=== PATIENT | female | born 1995 | race Caucasian/White ===

== ENCOUNTER → 2021-05-12 10:00 | Outpatient (BNVA) | payer OTHER, SELFPAY | PROVIDERS: Family Provider Nurse Practitioner Family; PCP Nurse Practitioner Family; Visit Provider Nurse Practitioner Family | DX: Z20.822 Contact with and (suspected) exposure to COVID-19 (principal) | CPT/HCPCS: 87635 ==

== ENCOUNTER 2021-07-27 18:45 | Outpatient (CLI) | payer MEDICAID, SELFPAY ==
[2021-07-27] VITALS (9 sets, daily range): BP systolic 116–136; BP diastolic 62–73; PULSE 57–73; RESP 16; BMI 31.2
[2021-07-27 20:06] LABS: Add Urine Microscopic? NO; Charge for UA Resulting for Rev
[2021-07-27 20:08] LABS: Specific Gravity, Urine 1.005 (1.005-1.030); Urine Appearance Hazy (CLEAR); Urine Color Yellow (Yellow); pH Urine 7 (5-7)
[2021-07-27 20:09] LABS: Bilirubin Urine Neg (Negative); Blood Urine Neg (Negative); Glucose Urine UA Norm (Normal); Ketones Urine Negative (Negative); Leukocyte Esterase Urine Negative (Negative); Nitrate Urine Negative (Negative); Protein Urine Neg (Negative); Urobilinogen Urine Norm (Negative)
== END 2021-07-27 20:22 | disposition home or self-care (01) ==
LOC: OPOB 18:54 → OBGYN 18:55
PROVIDERS: PCP Nurse Practitioner Family; Visit Provider Family Medicine
DX: O16.9 Unspecified maternal hypertension, unspecified trimester (principal); Z3A.00 Weeks of gestation of pregnancy not specified
CPT/HCPCS: 59025; 81003; 99211

== ENCOUNTER → 2021-09-03 15:10 | Outpatient (BNVA) | payer MEDICAID, SELFPAY | PROVIDERS: PCP Nurse Practitioner Family; Visit Provider Family Medicine | DX: Z01.812 Encounter for preprocedural laboratory examination (principal); Z20.822 Contact with and (suspected) exposure to COVID-19 | CPT/HCPCS: 87635 ==

== ENCOUNTER 2021-09-04 03:40 | Inpatient (IN) | payer MEDICAID, SELFPAY ==
[2021-09-04] VITALS (112 sets, daily range): BP systolic 90–141; BP diastolic 47–90; PULSE 58–130; RESP 16–18; TEMP 36.2–37.1; O2SAT 94–100; BMI 32.1
[2021-09-04] MEDS: lactated ringers 1,000 ML 999 ML IV ×3 (03:49→08:50)
[2021-09-04 04:05] LABS: Basophils # 0.1 10^3/uL (0.0-0.1); Basophils % 0.5 %; Hematocrit 35.2 % (37.0-47.0); Hemoglobin 11.6 g/dL (11.5-15.3); Lymphocytes # 1.4 10^3/uL (0.8-4.8); Lymphocytes % 9.1 %; Mean Corpuscular Volume 82.1 fl (81-99); Mean Platelet Volume 10.8 fL (7.4-10.4); Monocytes # 0.5 10^3/uL (0.2-0.9); Monocytes % 3.2 %; Neutrophils % 86.1 %; Nucleated Red Blood Cells % 0 %; Platelet Count 351 10^3/cmm (130-400); Red Blood Count 4.29 10^6/uL (4.1-5.3); Red Cell Distribution Width 13.1 % (12.1-15.1); White Blood Count 15.2 10^3/uL (4.0-10.0)
[2021-09-04 04:08] LABS: SARS Covid-2 Antigen Negative (Negative)
--- NOTE | 2021-09-04 05:41 | ANES.PREANE2 ---
Documented by User: Silvestre Torres Jr, BINDERY CUTTER OPERATOR 09/04/21 05:47 Pre-Anesthetic Assessment Height/Weight: Height 1.63 m Weight 84.822 kg Pulse Resp BP Pulse Ox 84 18 133/67 96 09/04/21 05:38 09/04/21 03:58 09/04/21 05:38 09/04/21 05:38 Preop Diagnosis: Labor Pain YUNI Was Beta Clay taken within 24 hours: N/A Was Clonidine taken within 24 hours: N/A Social No alcohol and No tobacco Exam alert, oriented x 3, clear to auscultation bilaterally and regular rate & rhythm Airway Submandibular: within normal limits Cervical ROM: within normal limits Mallampati: Class II (Prior trach age 8. No difficulty with intubation since) History/ROS No significant history except as noted and No significant complaints Pulmonary None reported CV/HEM None reported None reported Hepatic None reported GI None reported Metabolic None reported Musc/skel None reported Neuropsych None reported Anesthetic Plan ASA status: 2 Anesthesia: Regional (specify below) Other: YUNI Risk of > 500 ml blood loss (7ml/kg in children): No Medications/Allergies Home Medications Medication Instructions Recorded Confirmed Last Taken Type bqomzfdc-baq-Ey-FA 1 mg 1 tab PO DAILY 09/04/21 09/04/21 09/03/21 21:00 History tablet ibuprofen 800 mg tablet 800 mg PO TID #45 tab 09/05/21 Unknown Rx Allergies Allergy/AdvReac Type Severity Reaction Status Date / Time Sulfa (Sulfonamide Allergy ALGY-Anaphy Verified 09/04/21 00:13 Antibiotics) laxis Current Medications Generic Name Dose Route Start Last Admin Trade Name Ilana PRN Reason Stop Dose Admin Lactated Ringer's 1,000 mls @ 999 mls/hr 09/04/21 03:25 09/04/21 04:50 Lactated Ringers IV Infused .Q1H1M PRN Infusion See label comments Lactated Ringer's 1,000 mls @ 999 mls/hr 09/04/21 03:58 09/04/21 04:50 Lactated Ringers IV 999 mls/hr .Q1H1M PRN Administration Per L&D Rescitation Protocol [facility] Anesthesia Female Reproductive History : 1 Data Anesthesia : 09/04/21 20:46 Short CBC 09/04/21 Range/Units 03:25 WBC 15.2 H (4.0-10.0) 10^3/uL Hgb 11.6 (11.5-15.3) g/dL Hct 35.2 L (37.0-47.0) % MCV 82.1 (81-99) fl Plt Count 351 (130-400) 10^3/cmm Neut % (Auto) 86.1 % Neut # (Auto) 13.10 H (1.8-7.7) 10^3/uL COVID Results 09/04/21 03:40 SARS-CoV-2 Ag (Rapid) Negative Cardiac Studies: No Data to Display
--- NOTE | 2021-09-04 05:50 | ANES.PROC ---
Anesthesia Procedures Procedure/Date: 09/04/21 Epidural: Time Out Performed: Yes Consents Signed: Procedure Consent Consent: requested by attending/covering physician, from patient, risks and benefits reviewed and patient agrees to proceed Lumbar Level: L2-L3 Epidural position: sitting Epidural procedure: sterile prep of area, 1% lidocaine to numb the area, 18 g needle, neg for paresthesia, test dose given, 1.5% xylocaine 1:200k epi (5cc), 0.2% Ropivacaine bolus ml (5cc with Fentanyl 100mcg), placed PCEA, no systemic response, sterile dressing applied, L.U.D. no apparent complications and 0.2% Ropiavacaine @ mls/hr (13cc/hour) Additional Comments: FIORELLA at 7cm. Pt richi well
--- NOTE | 2021-09-04 07:54 | ANES.PROC ---
Documented by User: Rogelio Porras Jr, CRNA 09/04/21 08:08 Anesthesia Procedures Procedure/Date: 09/04/21 Procedure Narrative: Pt C/o numbness and tingling to hands. Epidural held for 30 min. Restarted at 10ml/hr. Pt comfortable with good respiratory effort. Pt educated on bolus button. Will continue to monitor. Documented by User: Sabrina Schuler DO 09/05/21 07:57 Anesthesia Procedures Procedure/Date: 09/05/21
[2021-09-04] MEDS: dextrose 5%-lactated ringers 1,000 ML 125 ML IV (09:50)
--- NOTE | 2021-09-04 12:10 | PM.OPHPUD ---
Labor & Delivery H&P Update Date of Procedure: September 04, 2021 Date H&P Performed: 09/01/21 Admission Diagnosis: 25-year-old 1 at 38 weeks estimated gestational age presenting in active labor Preop diagnosis: Labor Pain Planned procedure: Spontaneous vaginal delivery Other information: The patient is a relatively healthy 25-year-old female who has had a relatively unremarkable with exception of being antibody positive having titers that are 1:1. Her blood type is a positive. Her GBS status is negative. She passed her glucose screen. The remainder of her labs are within normal limits. Her titer has been checked multiple times and has not been 1:1 each time. She currently has a titer pending. She presented to the hospital in active labor having consistent contractions and cervical change. Related Problem List Diagnoses (1) 38 weeks gestation of : We will proceed with routine labor. At this point we are still planning on a vaginal delivery. (2) Active labor:
--- NOTE | 2021-09-04 13:10 | P.PCNOB_ITS ---
Delivery Note: Date of delivery: September 04, 2021 Pre-delivery diagnoses: 1. 25-year-old 1 at 38 weeks estimated gestational age presenting in active labor Post-delivery diagnoses: Status post spontaneous vaginal delivery Procedure: Spontaneous vaginal delivery Delivering Physician: Braydon Rankin Estimated blood loss (mL): 50 Pre-Delivery Course: The patient presented to the hospital in active labor. An epidural was placed. An amniotomy was performed. She progressed to complete without difficulty. Delivery: DELIVERY: The patient progressed to complete without difficulty. She delivered a male with a weight of 6 pounds 7 ounces with Apgars of 8, 9. The baby was delivered from the SARAH position. and placed on the mother's abdomen. The cord was then clamped and cut. There was a body cord x1. There was no meconium. The placenta and 3 vessel cord were delivered intact shortly thereafter. The perineum and vaginal vault were carefully examined. Superficial lacerations that were not bleeding were noted on both the left and right vaginal wall. They did not require repair Both the mother and the baby were in stable condition. Post-Delivery Status: Good A&P Assessment and plan (1) Spontaneous vaginal delivery: Status: Acute (2) 38 weeks gestation of : Status: Acute Coding Level of Care Code Acute Forensic Ballistics Expert for Chg Fwd Diagnoses Spontaneous vaginal delivery O80 38 weeks gestation of Z3A.38
--- NOTE | 2021-09-04 15:20 | PC.NURSE ---
1515 PT UP TO BATHROOM, UNABLE TO VOID AT THIS TIME, BUT WAS INSTRUCTED ON [facility]ICARE AND THEN AMBULATED TO OB8 WITHOUT DIFFICULTY. ORIENTED TO ROOM, CALL LIGHT, ETC.
[2021-09-04] MEDS: ibuprofen 800 mg tablet PO ×2 (16:32→21:51)
[2021-09-04] MEDS: docusate sodium 100 mg Capsule PO (16:32)
[2021-09-04 21:28] LABS: Hematocrit 31.3 % (37.0-47.0); Hemoglobin 10.3 g/dL (11.5-15.3); Mean Corpuscular HGB Conc 32.9 g/dL (30.0-36.0); Mean Corpuscular Hemoglobin 27.6 pg (28.0-34.0); Mean Corpuscular Volume 83.9 fl (81-99); Platelet Count 296 10^3/cmm (130-400); Red Blood Count 3.73 10^6/uL (4.1-5.3); Red Cell Distribution Width 13.2 % (12.1-15.1); White Blood Count 15.4 10^3/uL (4.0-10.0)
[2021-09-05 02:45] VITALS: BP 107/61; PULSE 85; RESP 16; O2SAT 95
[2021-09-05] MEDS: lanolin oint 7 gm 1 APPLIC TOPICAL (06:26)
[2021-09-05] MEDS: benzocaine-menthol 78 gm Canister 1 SPRAY TOPICAL (06:26)
--- NOTE | 2021-09-05 07:02 | PM.OBGYDC ---
Discharge Providers DIRECTOR SUPPLIER QUALITY Date of Admission: 09/04/21 03:40 Date of Discharge: 09/05/21 Attending Provider at Admission: Braydon Rankin MD Attending Provider at Discharge: Braydon Rankin MD Primary Care Provider: JOSE Jackson Diagnoses at Discharge Discharge Diagnosis (1) 38 weeks gestation of : Status: Acute (2) Vacuum-assisted vaginal delivery: Status: Acute Reason for Visit Reason for Visit: CONTRACTIONS Hospital Course Hospital Course The patient presented to the hospital in active labor. An epidural was placed. An amniotomy was performed. She progressed to complete. She was having recurrent late decelerations and as result in a vacuum was used for 1 contraction and the baby was delivered. Her course has been unremarkable. Her bleeding has been within normal limits. Her pain is been well controlled. There have been no concerns. Physical Exam Narrative: The patient is alert. She appears comfortable. Her heart has a regular rate and rhythm with no murmurs appreciated. Lungs are clear to auscultation bilaterally. Her fundus is firm and below the umbilicus. Urinary Catheter Management: [place]: Cath Placed During This Visit: yes Reason for Continuing Indwelling Catheter: Other Urinary Catheter Date of Insertion: 09/04/21 Urinary Catheter Time of Insertion: 07:15 Discharge Data Studies Completed and Pending Laboratory Results WBC 15.4 10^3/uL (4.0-10.0) H 09/04/21 20:46 RBC 3.73 10^6/uL (4.1-5.3) L 09/04/21 20:46 Hgb 10.3 g/dL (11.5-15.3) L 09/04/21 20:46 Hct 31.3 % (37.0-47.0) L 09/04/21 20:46 MCV 83.9 fl (81-99) 09/04/21 20:46 MCH 27.6 pg (28.0-34.0) L 09/04/21 20:46 MCHC 32.9 g/dL (30.0-36.0) 09/04/21 20:46 RDW 13.2 % (12.1-15.1) 09/04/21 20:46 Plt Count 296 10^3/cmm (130-400) 09/04/21 20:46 MPV 11.0 fL (7.4-10.4) H 09/04/21 20:46 Neut % (Auto) 86.1 % 09/04/21 03:25 Lymph % (Auto) 9.1 % 09/04/21 03:25 [place] % (Auto) 3.2 % 09/04/21 03:25 Eos % (Auto) 0.0 % 09/04/21 03:25 Baso % (Auto) 0.5 % 09/04/21 03:25 Neut # (Auto) 13.10 10^3/uL (1.8-7.7) H 09/04/21 03:25 Lymph # (Auto) 1.4 10^3/uL (0.8-4.8) 09/04/21 03:25 [place] # (Auto) 0.5 10^3/uL (0.2-0.9) 09/04/21 03:25 Eos # (Auto) 0.0 10^3/uL (0.0-0.8) 09/04/21 03:25 Baso # (Auto) 0.1 10^3/uL (0.0-0.1) 09/04/21 03:25 Nucleated RBC % (auto) 0 % 09/04/21 03:25 Nucleated RBCs # 0.0 /100WBC 09/04/21 03:25 SARS-CoV-2 Ag (Rapid) Negative (Negative) 09/04/21 03:40 Vitals Last Vital Signs Temp 98.4 F 09/04/21 16:00 Pulse 85 09/05/21 02:45 Resp 16 09/05/21 02:45 BP 107/61 09/05/21 02:45 Pulse Ox 95 09/05/21 02:45 Discharge Plan Discharge Patient Disposition: Home Condition: Stable Prescriptions: New ibuprofen 800 mg Tablet 800 mg PO TID Qty: 45 0RF Continued imfxvvjr-khc-Gf-FA 1 mg Tablet 1 tab PO DAILY 0RF Discharge Orders: Discharge Order (Routine); Ordered 09/05/21 Ordered By: Braydon Rankin Patient Instructions: Depression (DC), Bleeding (DC), COVID-19 and (GEN), Hemorrhage (DC), OB Discharge Report, OB Food/Drug Interaction Guide, OB Care at Home, Opioid Safety, OB Home Care, OB Vaginal Deliveries Discharge Attestations DIRECTOR SUPPLIER QUALITY Time Spent in Discharge Care*: less than 30 min Specific Discharge Activities: Specific discharge activities: educating patient and educating and/or supporting family/caregiver Coding Level of Care Code Acute Black Oxide Operator for Chg Fwd Diagnoses 38 weeks gestation of Z3A.38 Vacuum-assisted vaginal delivery Z37.9
[2021-09-05 08:00] VITALS: BP 107/61; PULSE 65; RESP 16; TEMP 36.4; O2SAT 96
--- NOTE | 2021-09-05 08:27 | ANE.PACU2 ---
Inpatient post-anesthesia follow up: Airway intact: Yes Vital signs: Temperature 98.4 F Pulse Rate 85 Respiratory Rate 16 Blood Pressure 107/61 Pulse Oximetry 95 Oxygen Delivery Me thod Room Air Oxygen Flow Rate Fraction of Inspir ed Oxygen Hydration adequate: Yes Nausea and vomiting: No Pain level: 1 Mental status: Baseline
[2021-09-05] MEDS: docusate sodium 100 mg Capsule PO (09:02)
[2021-09-05] MEDS: prenatal vitamin Capsule 1 CAP PO (09:02)
[2021-09-05] MEDS: ibuprofen 800 mg tablet PO ×2 (09:02→15:39)
[2021-09-05 16:49] VITALS: BP 121/60; PULSE 61; RESP 16; TEMP 36.6; O2SAT 98
== END 2021-09-05 17:25 | disposition home or self-care (01) | DRG 807 ==
LOC: OPOB 03:41 → OBGYN 03:41
PROVIDERS: Admitting Provider Family Medicine; PCP Nurse Practitioner Family; Visit Provider Family Medicine
DX: O76 Abnormality in fetal heart rate and rhythm complicating labor and delivery (principal); Z37.0 Single live birth; O69.9XX0 Labor and delivery complicated by cord complication, unspecified, not applicable or unspecified; Z3A.38 38 weeks gestation of pregnancy
CPT/HCPCS: 12345; 36415; 51702; 59025; 59409; 85025; 85027; 87426; 96374; 99211; J2795; J3010

== ENCOUNTER 2022-09-06 06:29 | Outpatient (CLI) | payer OTHER, SELFPAY ==
--- NOTE | 2022-09-06 | US_ITS ---
WS: [id number] EARLY OBSTETRICAL ULTRASOUND (<14 WEEKS). HISTORY: HX OF SPONTANESOUS COMPARISON: None available. Single intrauterine gestational sac is identified. Cardiac activity at 164 BPM. [place]-rump length fidel sures 6.3 cm which corresponds to a gestation of 12w5d. Normal-appearing yolk sac and amnion demonstr ated. No subchorionic hemorrhage. No free fluid. Normal size RIGHT ovary with normal vascularity. LEFT ovary is not identified. No adnexal mass. US/US OB <= 14 weeks fetus [id number] IMPRESSION: 1. Single intrauterine gestation of 12 weeks 5 days with an EDC of 03/16/2023. 2. Normal cardiac activity.
== END 2022-09-06 06:30 | disposition home or self-care (01) ==
PROVIDERS: PCP Family Medicine; Visit Provider Family Medicine
DX: O09.299 Supervision of pregnancy with other poor reproductive or obstetric history, unspecified trimester (principal)
CPT/HCPCS: 76801

== ENCOUNTER 2022-09-24 17:54 | Emergency (ER) | payer OTHER, MEDICAID, SELFPAY ==
[2022-09-24 18:40] VITALS: BP 133/84; PULSE 107; RESP 20; TEMP 36.8; O2SAT 97; BMI 25.7
--- NOTE | 2022-09-24 18:46 | ED_ITS ---
HPI - Nausea/Vomiting/Diarrhea General: Chief complaint: Nausea/Vomiting/Diarrhea Stated complaint: n/v Time Seen by Provider: 09/24/22 17:56 Source: patient Mode of arrival: ambulatory Limitations: no limitations History of Present Illness: Patient is a nice 26-year-old female who presents to ED today with a complaint of nausea, vomiting, diarrhea, and abdominal cramping over the past 36 hours. Patient has not been running fevers but has chills and body aches. She is approximately 15 weeks . No vaginal bleeding or pelvic pain/cramping. She states her son started vomiting today. No poor food exposures. Denies chest pain, SOB. No urinary symptoms. She is otherwise healthy. MD elicited complaint: nausea, vomiting, diarrhea and abdominal pain Onset (ago): day(s) Description of diarrhea: watery Associated nausea: Yes Associated abdominal pain: Yes Location of pain: Diffuse Pain consistency: intermittent Quality: cramping Exacerbating factors: eating Relieving factors: bowel movement Associated symtoms: Reports dizziness and nausea; Denies chest pain or dysuria Review of Systems Const: Reports: chills and body aches; Denies: fever(s) Card: Denies: chest pain Resp: Denies: dyspnea GI: Reports: nausea, vomiting, diarrhea and GI cramping; Denies: hematochezia or melena : Denies: flank pain, dysuria, vaginal bleeding or pelvic pain Musc: Denies: back pain Neuro: Reports: dizziness Physical Exam Const: COMMON NORMALS: no acute distress, average body habitus, patient oriented x3, no limitations, healthy appearing, alert and well nourished Resp: COMMON NORMALS: normal respiratory effort and clear to auscultation bilaterally AUSCULTATION: clear to auscultation bilaterally Cardio: COMMON NORMALS: regular rhythm RATE: tachycardic RHYTHM: regular rhythm GI: COMMON NORMALS: Normal to inspection, nondistended, normoactive bowel sounds present, Soft to palpation and non-tender INSPECTION: Yes gravid abdomen AUSCULTATION: Yes normoactive bowel sounds PALPATION: Yes Soft to palpation Extremity: COMMON NORMALS: normal to inspection Neuro: RICARDO COMA SCALE: document GCS findings Ricardo coma scale eye opening: Spontaneous Ricardo coma scale verbal response: Orientated Ricardo coma scale motor response: Obey commands [place] coma scale total score: 15 COMMON NORMALS: patient oriented x3 SENSORIUM/ORIENTATION: Yes alert Course ED course: Bedside US of shows an active/live IUP. Vital Signs: Vital signs: Vital Signs Temperature 98.2 F 09/24/22 18:40 Pulse Rate 105 H 09/24/22 20:04 Respiratory Rate 16 09/24/22 20:04 Blood Pressure 133/84 09/24/22 18:40 Pulse Oximetry 96 09/24/22 20:04 MDM - Nausea/Vomiting/Diarrhea Medical Decision Making Patient here with nausea, vomiting, diarrhea, and abdominal cramping. She was given 1.5L NS and IV Reglan. Patient states she does feel better. She was able to eat and drink here without difficulty. Labs showing some mild tachycardia when she first arrived but this has resolved after fluids. Blood work overall is unremarkable. She is mildly hypokalemic at 3.4. She was given oral sup plementation for this. Mag is normal. Recommend bland liquid diet when she gets home and advance as tolerated. Will provide prescription for Reglan. Lab Data 09/24/22 18:35 09/24/22 18:35 Laboratory Results WBC 6.4 10^3/uL (4.0-10.0) 09/24/22 18:35 RBC 4.86 10^6/uL (4.1-5.3) 09/24/22 18:35 Hgb 13.9 g/dL (11.5-15.3) 09/24/22 18:35 Hct 41.5 % (37.0-47.0) 09/24/22 18:35 MCV 85.4 fl (81-99) 09/24/22 18:35 MCH 28.6 pg (28.0-34.0) 09/24/22 18:35 MCHC 33.5 g/dL (30.0-36.0) 09/24/22 18:35 RDW 12.5 % (12.1-15.1) 09/24/22 18:35 Plt Count 247 10^3/cmm (130-400) 09/24/22 18:35 MPV 9.8 fL (7.4-10.4) 09/24/22 18:35 Neut % (Auto) 88.2 % 09/24/22 18:35 Lymph % (Auto) 7.1 % 09/24/22 18:35 [place] % (Auto) 3.9 % 09/24/22 18:35 Eos % (Auto) 0.0 % 09/24/22 18:35 Baso % (Auto) 0.3 % 09/24/22 18:35 Neut # (Auto) 5.60 10^3/uL (1.8-7.7) 09/24/22 18:35 Lymph # (Auto) 0.5 10^3/uL (0.8-4.8) L 09/24/22 18:35 [place] # (Auto) 0.3 10^3/uL (0.2-0.9) 09/24/22 18:35 Eos # (Auto) 0.0 10^3/uL (0.0-0.8) 09/24/22 18:35 Baso # (Auto) 0.0 10^3/uL (0.0-0.1) 09/24/22 18:35 Nucleated RBC % (auto) 0 % 09/24/22 18:35 Nucleated RBCs # 0.0 /100WBC 09/24/22 18:35 Sodium 137 mmol/L (136-145) 09/24/22 18:35 Potassium 3.4 mmol/L (3.5-5.1) L 09/24/22 18:35 Chloride 101 mmol/L (98-107) 09/24/22 18:35 Carbon Dioxide 22 mmol/L (22-29) 09/24/22 18:35 Anion Gap 17.4 (5-19) 09/24/22 18:35 BUN 10 mg/dL (6-20) 09/24/22 18:35 Creatinine 0.5 mg/dL (0.5-0.9) 09/24/22 18:35 GFR Calculation 148.0 mL/min (90-130) H 09/24/22 18:35 Glucose 110 mg/dL (65-115) 09/24/22 18:35 Calculated Osmolality 284 mOsm/kg (285-295) L 09/24/22 18:35 Calcium 9.0 mg/dL (8.5-10.5) 09/24/22 18:35 Magnesium 1.7 mg/dL (1.7-2.3) 09/24/22 18:35 Total Bilirubin 0.3 mg/dL (0.15-1.2) 09/24/22 18:35 AST 30 U/L (0-32) 09/24/22 18:35 ALT 19 U/L (0-33) 09/24/22 18:35 Alkaline Phosphatase 45 U/L (35-105) 09/24/22 18:35 Total Protein 6.9 g/dL (6.6-8.7) 09/24/22 18:35 Albumin 4.1 g/dL (3.5-5.2) 09/24/22 18:35 Globulin 2.8 g/dL (1.3-4.6) 09/24/22 18:35 Discharge Plan Discharge Patient Disposition: Home Clinical Impression: Gastroenteritis Condition: Stable Prescriptions: New Reglan 10 mg tablet 10 mg PO Q6H Qty: 12 0RF No Action deuxuvza-xrl-Tg-FA 1 mg Tablet 1 tab PO DAILY ibuprofen 800 mg Tablet 800 mg PO TID Qty: 45 0RF Discharge Orders: Discharge ED (Routine); Ordered 09/24/22 Ordered By: Felisha Rivera Referrals: Braydon Rankin MD [Primary Care Provider] - Patient Instructions: Gastroenteritis (DC) Coding Level of Care Code ED Clinical Faculty for Davian Moody
[2022-09-24] MEDS: sodium chloride 0.9% 1,000 ML 999 ML IV ×2 (18:55→20:08)
[2022-09-24] MEDS: metoclopramide 5 mg/mL SDV 2 mL 10 MG IVP (18:55)
[2022-09-24 18:57] LABS: Basophils % 0.3 %; Hematocrit 41.5 % (37.0-47.0); Hemoglobin 13.9 g/dL (11.5-15.3); Lymphocytes # 0.5 10^3/uL (0.8-4.8); Lymphocytes % 7.1 %; Mean Corpuscular HGB Conc 33.5 g/dL (30.0-36.0); Mean Corpuscular Hemoglobin 28.6 pg (28.0-34.0); Mean Corpuscular Volume 85.4 fl (81-99); Mean Platelet Volume 9.8 fL (7.4-10.4); Monocytes # 0.3 10^3/uL (0.2-0.9); Monocytes % 3.9 %; Neutrophils % 88.2 %; Nucleated Red Blood Cells % 0 %; Platelet Count 247 10^3/cmm (130-400); Red Blood Count 4.86 10^6/uL (4.1-5.3); Red Cell Distribution Width 12.5 % (12.1-15.1); White Blood Count 6.4 10^3/uL (4.0-10.0)
[2022-09-24 19:23] LABS: Alanine Aminotransferase 19 U/L (0-33); Albumin Level 4.1 g/dL (3.5-5.2); Alkaline Phosphatase 45 U/L (35-105); Anion Gap 17.4 (5-19); Aspartate Amino Transferase 30 U/L (0-32); Blood Urea Nitrogen 10 mg/dL (6-20); Carbon Dioxide 22 mmol/L (22-29); Chloride 101 mmol/L (98-107); Globulin 2.8 g/dL (1.3-4.6); Glucose 110 mg/dL (65-115); Osmolality Calculated 284 mOsm/kg (285-295); Potassium 3.4 mmol/L (3.5-5.1); Sodium 137 mmol/L (136-145); Total Bilirubin 0.3 mg/dL (0.15-1.2); Total Protein 6.9 g/dL (6.6-8.7)
[2022-09-24] MEDS: potassium chloride ER 20 mEq Tablet 40 MEQ PO (19:44)
[2022-09-24 19:55] LABS: Magnesium 1.7 mg/dL (1.7-2.3)
[2022-09-24 20:04] VITALS: PULSE 105; RESP 16; O2SAT 96
[2022-09-24] MEDS: metoclopramide 10 mg Tablet PO (21:16)
== END 2022-09-24 21:17 | disposition home or self-care (01) ==
PROVIDERS: Emergency Provider Physician Assistant; PCP Family Medicine
DX: O99.612 Diseases of the digestive system complicating pregnancy, second trimester (principal); K52.9 Noninfective gastroenteritis and colitis, unspecified; O99.891 Other specified diseases and conditions complicating pregnancy; E87.6 Hypokalemia; Z3A.15 15 weeks gestation of pregnancy
CPT/HCPCS: 36415; 80053; 83735; 85025; 96361; 96374; 99284; J2765; J7030; J8597

== ENCOUNTER 2022-09-26 13:49 | Outpatient (CLI) | payer OTHER, MEDICAID, SELFPAY ==
[2022-09-26 14:55] LABS: Add Urine Microscopic? NO; Charge for UA Resulting for Rev
[2022-09-26 15:04] LABS: Bilirubin Urine Neg (Negative); Blood Urine Neg (Negative); Glucose Urine UA Norm (Normal); Ketones Urine Negative (Negative); Leukocyte Esterase Urine Negative (Negative); Nitrate Urine Negative (Negative); Protein Urine Neg (Negative); Specific Gravity, Urine 1.005 (1.005-1.030); Urine Appearance Clear (CLEAR); Urine Color Colorless (Yellow); Urobilinogen Urine Neg (Negative); pH Urine 6.5 (5-7)
[2022-09-26 15:05] LABS: Basophils % 0.4 %; Eosinophils # 0.1 10^3/uL (0.0-0.8); Eosinophils % 1.2 %; Hematocrit 36.5 % (37.0-47.0); Hemoglobin 12.3 g/dL (11.5-15.3); Lymphocytes # 1.4 10^3/uL (0.8-4.8); Lymphocytes % 25.3 %; Mean Corpuscular HGB Conc 33.7 g/dL (30.0-36.0); Monocytes # 0.4 10^3/uL (0.2-0.9); Monocytes % 7.1 %; Neutrophils # 3.71 10^3/uL (1.8-7.7); Neutrophils % 65.5 %; Nucleated Red Blood Cells % 0 %; Platelet Count 241 10^3/cmm (130-400); Red Cell Distribution Width 12.2 % (12.1-15.1); White Blood Count 5.7 10^3/uL (4.0-10.0)
[2022-09-26 16:38] LABS: Hepatitis C Virus Antibody Non-Reactive (Nonreactive)
[2022-09-26 16:41] LABS: Rapid Plasma Reagin Syphilis Nonreactive (Nonreactive)
[2022-09-26 16:52] LABS: Amphetamines Screen Urine Negative (Negative); Barbiturates Screen Urine Negative (Negative); Benzodiazepines Screen Urine Negative (Negative); Cocaine Screen Urine Negative (Negative); Opiate Screen Urine Negative (Negative); PCP Screen Urine Negative (Negative); THC Screen Urine Negative (Negative)
[2022-09-26 18:19] LABS: HIV 1 & 2 Antibody Non-Reactive (Non-Reactiv); HIV 1 & 2 Antigen Non-Reactive (Non-Reactiv)
[2022-09-27 01:57] LABS: Hepatitis B Surface Antigen Non-Reactive (Nonreactive)
== END 2022-09-26 13:50 | disposition home or self-care (01) ==
LOC: LAB 13:54
PROVIDERS: PCP Family Medicine; Visit Provider Family Medicine
DX: Z34.82 Encounter for supervision of other normal pregnancy, second trimester (principal)
CPT/HCPCS: 80306; 81003; 85025; 86592; 86765; 86803; 86850; 86900; 87086; 87340; 87491; 87591; 87806

== ENCOUNTER 2022-12-29 05:30 | Outpatient (CLI) | payer OTHER, MEDICAID, SELFPAY ==
[2022-12-29 07:01] LABS: Glucose Fasting 84 mg/dL (74-109)
[2022-12-29 11:03] LABS: Glucose 2 Hour 76 mg/dL
[2022-12-29 11:03] LABS: Glucose 1 Hour 107 mg/dL
[2022-12-29 11:04] LABS: Glucose 3 Hour 66 mg/dL
== END 2022-12-29 05:31 | disposition home or self-care (01) ==
PROVIDERS: PCP Family Medicine; Visit Provider Family Medicine
DX: Z34.83 Encounter for supervision of other normal pregnancy, third trimester (principal); R73.02 Impaired glucose tolerance (oral)
CPT/HCPCS: 36415; 82951; 82952

== ENCOUNTER 2023-03-08 17:39 | Inpatient (IN) | payer OTHER, MEDICAID, SELFPAY ==
[2023-03-08] VITALS (37 sets, daily range): BP systolic 98–143; BP diastolic 52–80; PULSE 63–101; RESP 15–17; TEMP 36.3–36.7; O2SAT 81–100; BMI 32.1
[2023-03-08] MEDS: lactated ringers 1,000 ML 999 ML IV ×2 (18:10→19:17)
[2023-03-08 18:35] LABS: Basophils # 0.1 10^3/uL (0.0-0.1); Basophils % 0.5 %; Eosinophils # 0.2 10^3/uL (0.0-0.8); Eosinophils % 1.2 %; Hematocrit 36.6 % (36-47); Lymphocytes % 15.1 %; Mean Corpuscular HGB Conc 33.3 g/dL (30-55); Mean Corpuscular Hemoglobin 26.9 pg (27-33); Mean Corpuscular Volume 80.8 fl (85-98); Mean Platelet Volume 10.4 fL (7.4-10.4); Monocytes # 0.5 10^3/uL (0.2-0.9); Monocytes % 3.8 %; Neutrophils # 10.31 10^3/uL (1.8-7.7); Neutrophils % 78.5 %; Nucleated Red Blood Cells % 0 %; Platelet Count 287 10^3/cmm (157-399); Red Blood Count 4.53 10^6/uL (3.85-5.65); Red Cell Distribution Width 13.1 % (12.1-15.1); White Blood Count 13.13 10^3/uL (3.29-11.43)
--- NOTE | 2023-03-08 18:52 | ANES.PREANE2 ---
Pre-Anesthetic Assessment Height/Weight: Height 1.63 m Weight 84.822 kg Temp Pulse Resp BP O2 Del Method 97.4 F L 63 17 118/63 Room Air 03/08/23 18:27 03/08/23 18:40 03/08/23 18:27 03/08/23 18:40 03/08/23 18:27 Preop Diagnosis: labor Epidural Was Beta Clay taken within 24 hours: N/A Was Clonidine taken within 24 hours: N/A Last Intake: 12:30 Social No alcohol and No tobacco Exam alert, oriented x 3, clear to auscultation bilaterally and regular rate & rhythm Airway Submandibular: within normal limits Cervical ROM: within normal limits Mallampati: Class II Dentition: full Pulmonary None reported CV/HEM None reported None reported Hepatic None reported GI None reported Metabolic None reported Musc/skel None reported Neuropsych None reported Anesthetic Plan ASA status: 2 Anesthesia: Regional (specify below) (epidural) Medications/Allergies Home Medications Medication Instructions Recorded Confirmed Last Taken Type hcafbdcq-ymg-Uf-FA 1 mg 1 tab PO DAILY 09/04/21 09/04/21 09/03/21 21:00 History tablet ibuprofen 800 mg tablet 800 mg PO TID #45 tabs 09/05/21 Unknown Rx metoclopramide HCl 10 mg tablet 10 mg PO Q6H #12 tabs 09/24/22 Unknown Rx (Reglan) Allergies Allergy/AdvReac Type Severity Reaction Status Date / Time Sulfa (Sulfonamide Allergy ALGY-Anaphy Verified 09/04/21 00:13 Antibiotics) laxis Current Medications Generic Name Dose Route Start Last Admin Trade Name Ilana PRN Reason Stop Dose Admin Lactated Ringer's 1,000 mls @ 999 mls/hr 03/08/23 17:37 03/08/23 18:10 Lactated Ringers IV 999 mls/hr .Q1H1M PRN Administration See label comments PFSH Anesthesia Female Reproductive History : 3 Data Anesthesia 03/08/23 18:00 Short CBC 03/08/23 Range/Units 18:00 WBC 13.13 H (3.29-11.43) 10^3/uL Hgb 12.20 (11.27-16.99) g/dL Hct 36.6 (36-47) % MCV 80.8 L (85-98) fl Plt Count 287 (157-399) 10^3/cmm Neut % (Auto) 78.5 % Neut # (Auto) 10.31 H (1.8-7.7) 10^3/uL Cardiac Studies: No Data to Display
--- NOTE | 2023-03-08 19:12 | PM.OPHPUD ---
Labor & Delivery H&P Update Date of Procedure: March 08, 2023 Date H&P Performed: 03/08/23 Changes to previous documentation: The patient was 5 cm in office today. She was 7 cm upon arrival at the hospital. Admission Diagnosis: 27-year-old 3 para 1-0-1-1 at 38 weeks estimated gestational age presenting in active labor Preop diagnosis: labor Planned procedure: Vaginal delivery Other information: The patient is an otherwise healthy 19-year-old female who has had an unremarkable . She was seen in my office today as a part of a routine visit. Her membranes were stripped. She has had no symptoms of preeclampsia. There have been no other concerns or problems. Her blood type is a positive. She passed her glucose screen. She was GBS negative rubella immune. The remainder of her infectious disease profile was within normal limits. Related Problem List Diagnoses (1) 38 weeks gestation of : A&P Assessment and plan (1) 38 weeks gestation of : The patient desires an epidural. I am hopeful that she will have a routine labor and vaginal delivery. Status: Resolved
[2023-03-08] MEDS: ROPivacaine syringe 100 MG/50 ML SYRINGE 10 MG EPIDURAL (19:17)
--- NOTE | 2023-03-08 19:23 | ANES.PROC ---
Anesthesia Procedures Procedure/Date: 03/08/23 Epidural: Time Out Performed: Yes Consents Signed: Procedure Consent and NPO Consent Consent: requested by attending/covering physician, from patient, risks and benefits reviewed, patient agrees to proceed and emergency procedure Lumbar Level: L3-L4 Epidural position: sitting Epidural procedure: sterile prep of area (betadine), 1% lidocaine to numb the area (3ml), 18 g needle, neg for paresthesia, test dose given, 1.5% xylocaine 1:200k epi (3ml/2ml), 0.2% Ropivacaine bolus ml (5ml), placed PCEA, no systemic response, sterile dressing applied, L.U.D. no apparent complications and 0.2% Ropiavacaine @ mls/hr (10ml/hr)
[2023-03-08] MEDS: oxytocin 30 UNIT/500 ML BAG 600 UNIT IV (19:53)
[2023-03-08] MEDS: ondansetron 2 mg/ML SDV 2 mL 4 MG IVP (20:00)
--- NOTE | 2023-03-08 21:35 | PM.DELIVERY ---
Delivery Note: Date of delivery: March 08, 2023 Pre-delivery diagnoses: 27-year-old 3 para 1-0-1-1 at 38 weeks estimated gestational age in active labor Post-delivery diagnoses: Status post vacuum-assisted vaginal delivery Procedure: Vacuum-assisted vaginal delivery Delivering Physician: Braydon Rankin Estimated blood loss (mL): 100 Pre-Delivery Course: The patient presented to the hospital in active labor. She was found to be 7 cm dilated. An epidural was placed. An amniotomy was performed she progressed to 9 cm without difficulty. Her cervix was stretchy, we pushed with her during 1 contraction, and the cervix dilated completely. Delivery: DELIVERY: The patient progressed to complete without difficulty. While the patient was pushing, the baby's heart tones began dipping consistently below 100. As result a vacuum was applied for 1 contraction. There was no pop-off. She delivered a male with a weight of 3380 g with Apgars of 9, 10. The baby was delivered from the SARAH position. The baby's mouth and nose were suctioned at the site of the perineum. The baby was then completely delivered and placed on the mother's abdomen. The cord was then clamped and cut. There was no nuchal cord. There was no meconium. The placenta and 3 vessel cord were delivered intact shortly thereafter. The perineum and vaginal vault were carefully examined. A superficial anterior periurethral tear was noted. No repair was required.. Both the mother and the baby were in stable condition. A&P Assessment and plan (1) Vacuum-assisted vaginal delivery: I anticipate routine care. Plan I anticipate routine care Coding Level of Care Code Acute Code for Chg Fwd Diagnoses Vacuum-assisted vaginal delivery Z37.9
[2023-03-08] MEDS: ibuprofen 800 mg tablet PO (21:40)
[2023-03-09 01:00] VITALS: BP 117/64; PULSE 85; RESP 16; TEMP 36.7; O2SAT 99
[2023-03-09 02:30] VITALS: BP 103/63; PULSE 65; RESP 14; TEMP 36.7; O2SAT 98
[2023-03-09 05:00] VITALS: BP 105/65; PULSE 65; RESP 16; TEMP 36.6; TEMP 36.7; O2SAT 98
--- NOTE | 2023-03-09 06:39 | P.DS_ITS ---
Discharge Providers [employer] Date of Admission: 03/08/23 17:39 Date of Discharge: 03/09/23 Attending Provider at Admission: Braydon Rankin MD Attending Provider at Discharge: Braydon Rankin MD Primary Care Provider: [employer] Diagnoses at Discharge Discharge Diagnosis (1) 38 weeks gestation of : Status: Resolved Reason for Visit Reason for Visit: Contractions Hospital Course Hospital Course The patient presented to the hospital in active labor. She received an epidural. An amniotomy was performed. A vacuum-assisted vaginal delivery was performed due to recurrent bradycardia. She had minimal tearing. Her course has been unremarkable. Her pain has been well controlled. Her bleeding has been minimal. There have been no concerns. Information Peripartum Data: Delivery Method: Vaginal Physical Exam Narrative: The patient is alert. She appears comfortable. Her heart has a regular rate and rhythm with no murmurs appreciated. Lungs are clear to auscultation bilaterally. Her fundus is firm and below the umbilicus. Discharge Data Studies Completed and Pending Pending at discharge Category Date Time Status Hemagram Timed Lab 03/09/23 08:25 Uncollected Laboratory Results WBC 13.13 10^3/uL (3.29-11.43) H 03/08/23 18:00 RBC 4.53 10^6/uL (3.85-5.65) 03/08/23 18:00 Hgb 12.20 g/dL (11.27-16.99) 03/08/23 18:00 Hct 36.6 % (36-47) 03/08/23 18:00 MCV 80.8 fl (85-98) L 03/08/23 18:00 MCH 26.9 pg (27-33) L 03/08/23 18:00 MCHC 33.3 g/dL (30-55) 03/08/23 18:00 RDW 13.1 % (12.1-15.1) 03/08/23 18:00 Plt Count 287 10^3/cmm (157-399) 03/08/23 18:00 MPV 10.4 fL (7.4-10.4) 03/08/23 18:00 Neut % (Auto) 78.5 % 03/08/23 18:00 Lymph % (Auto) 15.1 % 03/08/23 18:00 [place] % (Auto) 3.8 % 03/08/23 18:00 Eos % (Auto) 1.2 % 03/08/23 18:00 Baso % (Auto) 0.5 % 03/08/23 18:00 Neut # (Auto) 10.31 10^3/uL (1.8-7.7) H 03/08/23 18:00 Lymph # (Auto) 2.0 10^3/uL (0.8-4.8) 03/08/23 18:00 [place] # (Auto) 0.5 10^3/uL (0.2-0.9) 03/08/23 18:00 Eos # (Auto) 0.2 10^3/uL (0.0-0.8) 03/08/23 18:00 Baso # (Auto) 0.1 10^3/uL (0.0-0.1) 03/08/23 18:00 Nucleated RBC % (auto) 0 % 03/08/23 18:00 Nucleated RBCs # 0.0 /100WBC 03/08/23 18:00 Vitals Last Vital Signs Temp 98.1 F 03/09/23 02:30 Pulse 65 03/09/23 02:30 Resp 14 03/09/23 02:30 BP 103/63 03/09/23 02:30 Pulse Ox 98 03/09/23 02:30 O2 Del Method Room Air 03/09/23 02:30 Discharge Plan Discharge Patient Disposition: Home Condition: Stable Prescriptions: New ibuprofen 800 mg Tablet 800 mg PO TID Qty: 45 0RF Continued [id number] 1 mg Tablet 1 tab PO DAILY Discontinued ibuprofen 800 mg Tablet 800 mg PO TID Qty: 45 0RF metoclopramide HCl [Reglan] 10 mg tablet 10 mg PO Q6H Qty: 12 0RF Discharge Orders: Discharge Order (Routine); Ordered 03/09/23 Ordered By: Braydon Rankin Patient Instructions: Opioid Safety Discharge Attestations [employer] Time Spent in Discharge Care*: less than 30 min Coding Level of Care Code Acute Code for Chg Fwd Diagnoses 38 weeks gestation of Z3A.38
[2023-03-09 08:27] LABS: Hematocrit 34.3 % (36-47); Mean Corpuscular HGB Conc 32.7 g/dL (30-55); Mean Corpuscular Hemoglobin 26.2 pg (27-33); Mean Corpuscular Volume 80.3 fl (85-98); Mean Platelet Volume 10.4 fL (7.4-10.4); Platelet Count 265 10^3/cmm (157-399); Red Blood Count 4.27 10^6/uL (3.85-5.65); Red Cell Distribution Width 13.1 % (12.1-15.1); White Blood Count 12.65 10^3/uL (3.29-11.43)
[2023-03-09] MEDS: docusate sodium 100 mg Capsule PO (09:04)
[2023-03-09] MEDS: ibuprofen 800 mg tablet PO (09:04)
[2023-03-09] MEDS: prenatal vitamin Capsule 1 CAP PO (09:05)
[2023-03-09 09:07] VITALS: BP 115/71; PULSE 67; RESP 16; TEMP 36.8; O2SAT 97
--- NOTE | 2023-03-09 16:24 | ANE.PACU2 ---
Inpatient post-anesthesia follow up: Airway intact: Yes Vital signs: Temperature 98.2 F Pulse Rate 67 Respiratory Rate 16 Blood Pressure 115/71 Pulse Oximetry 97 Oxygen Delivery Me thod Room Air Oxygen Flow Rate Fraction of Inspir ed Oxygen Hydration adequate: Yes Nausea and vomiting: No Pain level: 2 Mental status: Baseline
[2023-03-09 21:20] VITALS: BP 109/64; PULSE 78; RESP 16; TEMP 36.9; O2SAT 99
[2023-03-09 21:30] VITALS: BP 109/64; PULSE 78; RESP 16; TEMP 36.9; O2SAT 99
== END 2023-03-09 21:38 | disposition home or self-care (01) | DRG 807 ==
LOC: OPOB 17:45 → OBGYN 17:45
PROVIDERS: Admitting Provider Family Medicine; Visit Provider Family Medicine
DX: O76 Abnormality in fetal heart rate and rhythm complicating labor and delivery (principal); Z37.0 Single live birth; Z3A.38 38 weeks gestation of pregnancy
CPT/HCPCS: 36415; 59409; 85025; 85027; 96374; J2405; J2590; J2795; J7120

== ENCOUNTER 2023-05-22 08:00 | Outpatient (CLI) | payer OTHER, MEDICAID, SELFPAY ==
--- NOTE | 2023-05-22 08:45 | USCV_ITS ---
Michelle Patterson Age: 27 Gender: F : 1995 Exam Date: 05/22/2023 08:40 Ordering Phys: Braydon Rankin MD Technologist: Alma Hearn [place] [facility] [place]: murmur BP: / HR: 84 Rhythm: Sinus Technical Quality: Good MEASUREMENTS (Male / Female) Normal Values 2D ECHO LV Diastolic Diameter PLAX 4.2 cm 4.2 - 5.9 / 3.9 - 5.3 cm LV Systolic Diameter PLAX 2.4 cm IVS Diastolic Thickness 0.9 cm 0.6 - 1.0 / 0.6 - 0.9 cm IVS Systolic Thickness 1.4 cm LVPW Diastolic Thickness 0.7 cm 0.6 - 1.0 / 0.6 - 0.9 cm LVPW Systolic Thickness 1.5 cm LVOT Diameter 2.0 cm LV Ejection Fraction 2D Teich 74.8 % LA Diameter 2.2 cm LA Width 2.5 cm LA Height 4.3 cm RA Width 4.4 cm RA Height 4.3 cm Aorta at Sinotubular Diameter 2.5 cm IVC Diameter 0.9 cm M-MODE Aortic Annulus Diameter 2.8 cm LA Ao Ratio MM 0.7 MV E Point Septal Separation 0.5 cm DOPPLER AV Peak Velocity 131.0 cm/s LVOT Peak Velocity 97.0 cm/s AV Area Cont Eq vti 2.3 cm squared AV Area Cont Eq pk 2.3 cm squared MV Peak Velocity 109.0 cm/s MV Area PHT 3.3 cm squared Mitral E to A Ratio 1.4 MV E' Velocity 54.5 cm/s Mitral E to MV E' Ratio 5.8 Mitral E to LV E' Lateral Ratio 5.3 Mitral E to LV E' Septal Ratio 6.4 TR Peak Velocity 156.5 cm/s TR Peak Gradient 9.8 mmHg Right Atrial Pressure 5.0 mmHg Pulmonary Artery Systolic Pressu 14.8 mmHg PV Peak Velocity 84.0 cm/s RV Acceleration Time 0.2 s RV Ejection Time 0.4 s RV AcT/ET 0.4 FINDINGS Left Ventricle Left ventricle is normal size. LV systolic function is normal with EF 55 to 60%. No regional wall motion abnormalities seen. Right Ventricle Normal in size and function Right Atrium Normal in size Left Atrium Normal in size Mitral Valve Structurally normal mitral valve. Mild mitral regurgitation Aortic Valve Structurally normal aortic valve. No significant stenosis or regurgitation. Tricuspid Valve Mild tricuspid regurgitation. Pulmonary artery systolic pressure is normal. Pulmonic Valve Not well-visualized Pericardium Normal in size Aorta Normal in size IVC Appears to be normal CONCLUSIONS LV systolic function is normal with EF 55 to 60%. Mild mitral regurgitation Mild tricuspid regurgitation No comparison studies are available. Salty Heard MD (Electronically Signed) Final Date: 22 May 2023 17:08 S
== END 2023-05-22 08:01 | disposition home or self-care (01) ==
LOC: RAD 08:00
PROVIDERS: Visit Provider Family Medicine
DX: R01.1 Cardiac murmur, unspecified (principal); I08.1 Rheumatic disorders of both mitral and tricuspid valves
CPT/HCPCS: 93306

== ENCOUNTER 2025-01-17 11:32 | Outpatient (CLI) | payer SELFPAY ==
[2025-01-18 10:01] LABS: HIV 1 & 2 Antigen Non-Reactive (Non-Reactiv)
[2025-01-18 10:03] LABS: Hepatitis B Surface Antigen Non-Reactive (Nonreactive)
== END 2025-01-17 11:33 | disposition home or self-care (01) ==
LOC: LAB 11:36
DX: Z01.89 Encounter for other specified special examinations (principal)
CPT/HCPCS: 86706; 86803; 87340; 87806